=== PATIENT | male | born 1965 | race African-American/Black ===

== ENCOUNTER 2025-01-07 14:54 | Inpatient (IN) | payer SELFPAY ==
[~2025-01-07] VITALS: Ht 170.2 cm; Wt 120.2 kg
[2025-01-07] VITALS (23 sets, daily range): BP systolic 132–148; BP diastolic 100–117; PULSE 80–92; RESP 17–37; TEMP 36.8–36.8072; O2SAT 94–98
[~2025-01-07 14:54] MED LIST: ASPI-1406 PO; ATOR40TA70 PO; EMPA10TA PO; FOLI-43 PO; FURO80TA87 MT; GABA-1180 PO; GUAI600T44 PO; INSLIS SUBCUT; MAGN400T26 PO; MELA3TAB40 PO; THIA100T72 PO
[2025-01-07 15:45] LABS: BG BASE EXCESS -8.5 mmol/L (-2.0-3.0); BG CARBOXYHEMOGLOBIN 0.4 % (0.5-1.5); BG DEOXYHEMOGLOBIN 0.4 % (0.0-5.0); BG FRACTION INSPIRED OXYGEN 100; BG HCO3 ACT 14.6 mmol/L (21.0-28.0); BG METHEMOGLOBIN 0.3 % (0.5-1.5); BG OXYGEN SATURATION 99.6 % (94.0-98.0); BG OXYHEMOGLOBIN 98.9 % (94.0-98.0); BG PCO2 26.2 mmHg (35.0-48.0); BG PH 7.364 (7.350-7.450); BG PO2 208.1 mmHg (83.0-108.0); BG SAMPLE SITE RIGHT RADIAL; BG TOTAL HEMOGLOBIN 18.2 g/dL (13.5-17.5); BG TOTAL RESPIRATORY RATE 26 b/min; BG VENT MODE MASK - BIPAP; BG VENT RATE 18.0 set
[2025-01-07] MEDS: SODIUM CHLORIDE 0.9% 500 ML IV ONE (17:23)
[2025-01-07 17:47] LABS: BASOPHILS % 0.4 % (0.0-2.0); EOSINOPHILS % 0.5 % (0.0-5.0); HEMATOCRIT. 53.5 % (42.0-52.0); HEMOGLOBIN. 16.8 g/dL (14.0-18.0); LYMPHOCYTES % 20.1 % (20.0-50.0); MEAN PLATELET VOLUME 9.5 fl (7.4-10.4); MONOCYTES % 9.0 % (2.0-8.0); NEUTROPHILS % 70.0 % (40.0-76.0); PLATELET 142 x1000/uL (130-400); RED BLOOD CELL COUNT 5.93 mill/uL (4.7-6.1); RED CELL DISTRIBUTION WIDTH 16.7 % (11.6-14.6)
[2025-01-07] MEDS: DIPHENHYDRAMINE 50MG/ML VIAL IV ONE (17:52)
[2025-01-07] MEDS: METHYLPREDNISOLONE SOD SUCC 125MG/2ML (ACT-O-VIAL) IV NR (17:52)
[2025-01-07] MEDS ORDERED: METHYLPREDNISOLONE 40MG/ML INJ IV ONE (18:00)
[2025-01-07 18:01] LABS: CREATININE 1.7 mg/dL (0.6-1.3); UREA NITROGEN BLOOD 17 mg/dL (9-23)
[2025-01-07 18:02] LABS: ASPARTATE AMINOTRANSFERASE 27 IU/L (<34)
[2025-01-07 18:03] LABS: BILIRUBIN DIRECT 0.4 mg/dL (<=3.0); BILIRUBIN TOTAL 1.0 mg/dL (0.1-1.0); PROTEIN TOTAL 7.5 g/dL (6.0-8.3)
[2025-01-07 18:05] LABS: TROPONIN I HIGH SENSITIVITY 724 ng/L (3.0-53)
[2025-01-07] MEDS: MORPHINE SULFATE 4 MG/ML INJ (FOR IV/IM USE) IV ONE (18:37)
[2025-01-07] MEDS: IPRATROPIUM/ALBUTEROL 0.5-3(2.5)MG/3ML NEB HHN ONE (18:55)
[2025-01-07] MEDS ORDERED: HEPARIN 5000 UNITS/ML VIAL IV SCH (19:00)
[2025-01-07] MEDS ORDERED: HEPARIN 25,000 UNITS PREMIX 250 ML IV PRN (19:00)
[2025-01-07] MEDS ORDERED: HEPARIN 5000 UNITS/ML VIAL IV PRN ×2 (19:00)
[2025-01-07] MEDS ORDERED: TENECTEPLASE 50MG/VIAL (FOR MI OR PE) IV ONE (19:05)
[2025-01-07] MEDS: TENECTEPLASE 50MG/VIAL IV NR (19:11)
[2025-01-07] MEDS ORDERED: HEPARIN 1000 UNITS/ML 10ML ONE (19:19)
[2025-01-07] MEDS ORDERED: MIDAZOLAM HCL 2 MG/2 ML VIAL ONE (19:19)
[2025-01-07] MEDS ORDERED: IODIXANOL 320MG/ML 100 ML BOTTLE IV ONE (19:20)
[2025-01-07] MEDS ORDERED: EPINEPHRINE 0.1MG/ML (1:10,000) 10ML SYR ONE (19:20)
[2025-01-07] MEDS ORDERED: LIDOCAINE HCL 1% 20ML VIAL ONE (19:20)
[2025-01-07] MEDS ORDERED: ATROPINE SULFATE 1MG/10ML SYR ONE (19:21)
[2025-01-07] MEDS ORDERED: FENTANYL CITRATE/PF 50MCG/ML 2ML VIAL ONE (19:21)
[2025-01-07 19:34] LABS: TROPONIN I HIGH SENSITIVITY 781 ng/L (3.0-53)
[2025-01-07] MEDS ORDERED: IODIXANOL 320 MG/ML 150ML BOTTLE IV ONE (19:46)
[2025-01-07] MEDS ORDERED: ONDANSETRON HCL 4MG/2ML INJ IV PRN (22:15)
[2025-01-07] MEDS ORDERED: DOCUSATE SODIUM 100MG CAPSULE PO PRN (22:15)
[2025-01-07] MEDS: BLOOD SUGAR DIAGNOSTIC STRIP TEST SCH (23:45)
[2025-01-08] VITALS (73 sets, daily range): BP systolic 106–149; BP diastolic 67–115; PULSE 77–93; RESP 14–27; TEMP 35.6–36.9; O2SAT 83–99
[2025-01-08] MEDS: INSULIN LISPRO 100 UNITS/ML SUBCUT SCH ×2 (00:07→08:16)
[2025-01-08] MEDS: IPRATROPIUM/ALBUTEROL 0.5-3(2.5)MG/3ML NEB HHN SCH (00:14)
[2025-01-08 06:48] LABS: HEMATOCRIT. 51.4 % (42.0-52.0); HEMOGLOBIN. 16.3 g/dL (14.0-18.0); MEAN PLATELET VOLUME 9.4 fl (7.4-10.4); PLATELET 128 x1000/uL (130-400); RED BLOOD CELL COUNT 5.76 mill/uL (4.7-6.1); RED CELL DISTRIBUTION WIDTH 16.3 % (11.6-14.6)
[2025-01-08 06:53] LABS: INR 2.0
[2025-01-08 07:08] LABS: CREATININE 1.6 mg/dL (0.6-1.3); TRIGLYCERIDE 85.0 mg/dL (0-150); UREA NITROGEN BLOOD 19.0 mg/dL (9-23)
[2025-01-08 07:09] LABS: LDL CHOLESTEROL 58.0 mg/dL (5-100)
[2025-01-08 07:11] LABS: T4 FREE 1.21 ng/dL (0.89-1.76)
[2025-01-08 07:41] LABS: HEPATITIS C AB NON REACTIVE (Neg) (Negative)
[2025-01-08] MEDS: FUROSEMIDE 40MG/4ML VIAL IVP SCH (08:13)
[2025-01-08] MEDS: PANTOPRAZOLE SODIUM 40 MG/VIAL IV SCH (08:13)
[2025-01-08 09:13] LABS: BG BASE EXCESS -6.9 mmol/L (-2.0-3.0); BG CARBOXYHEMOGLOBIN 1.0 % (0.5-1.5); BG DEOXYHEMOGLOBIN 3.0 % (0.0-5.0); BG FLOW(L/min) 5.00 L/min; BG FRACTION INSPIRED OXYGEN 40; BG HCO3 ACT 15.1 mmol/L (21.0-28.0); BG METHEMOGLOBIN 0.1 % (0.5-1.5); BG OXYGEN SATURATION 97.0 % (94.0-98.0); BG OXYHEMOGLOBIN 95.9 % (94.0-98.0); BG PCO2 24.1 mmHg (35.0-48.0); BG PH 7.416 (7.350-7.450); BG PO2 90.8 mmHg (83.0-108.0); BG SAMPLE SITE RIGHT RADIAL; BG TOTAL HEMOGLOBIN 17.2 g/dL (13.5-17.5); BG VENT MODE NASAL CANNULA
[2025-01-08] MEDS: INSULIN GLARGINE 100 UNITS/ML SUBCUT SCH ×2 (10:12→21:54)
[2025-01-08 14:10] LABS: CLARITY URINE CLEAR (CLEAR); COLOR URINE YELLOW (YELLOW); GLUCOSE URINE 3+ (NEGATIVE); KETONES URINE NEGATIVE (NEGATIVE); LEUKOCYTE ESTERASE URINE NEGATIVE (NEGATIVE); NITRITE URINE NEGATIVE (NEGATIVE); OCCULT BLOOD URINE NEGATIVE (NEGATIVE); PH URINE 5.0 (4.5-8.0); PROTEIN URINE NEGATIVE (NEGATIVE); SPECIFIC GRAVITY URINE 1.021 (1.005-1.030); UROBILINOGEN URINE 0.2 E.U./dL (0.2-1.0)
[2025-01-08] MEDS: FOLIC ACID 1MG TABLET PO SCH (14:11)
[2025-01-08] MEDS: THIAMINE HCL 100MG TABLET PO SCH (14:11)
[2025-01-08] MEDS: ENOXAPARIN 120MG/0.8ML SYR SUBCUT SCH (14:11)
[2025-01-08] MEDS: EMPAGLIFLOZIN 10MG TABLET PO SCH (14:11)
[2025-01-08 14:20] LABS: *AMPHETAMINES SCREEN URINE PRESUMPTIVE POSITIVE (NEGATIVE); *BARBITURATES SCREEN URINE NEGATIVE (NEGATIVE); *BENZODIAZEPINES SCREEN URINE NEGATIVE (NEGATIVE); *COCAINE SCREEN URINE NEGATIVE (NEGATIVE); METHADONE URINE SCREEN NEGATIVE (NEGATIVE); OPIATES URINE SCREEN NEGATIVE (NEGATIVE)
[2025-01-08 14:21] LABS: CANNABINOID URINE SCREEN NEGATIVE (NEGATIVE); ECSTASY MDMA SCREEN URINE NEGATIVE (NEGATIVE); PHENCYCLIDINE URINE SCREEN NEGATIVE (NEGATIVE)
[2025-01-08 14:41] LABS: RBC URINE NONE SEEN /hpf (0-2); WBC URINE 0-2 /hpf (0-2)
[2025-01-08 14:42] LABS: BACTERIA URINE NONE SEEN; SQUAMOUS EPITHELIAL CELL URINE NONE SEEN /lpf (RARE/1+); YEAST URINE NONE SEEN
[2025-01-08 21:04] LABS: LYMPHOCYTES % MANUAL 4.0 % (20.0-50.0); MONOCYTES % MANUAL 3.0 % (2.0-8.0); NEUTROPHILS % MANUAL 93.0 % (45.0-75.0); PLATELET ESTIMATE DECREASED
[2025-01-08] MEDS: TRIAMCINOLONE ACETONIDE 0.5% CREAM 15GM TOP SCH (21:51)
[2025-01-08] MEDS ORDERED: INSULIN GLARGINE 100 UNITS/ML SUBCUT SCH (22:00)
[2025-01-09] VITALS (68 sets, daily range): BP systolic 105–134; BP diastolic 72–105; PULSE 76–115; RESP 12–31; TEMP 36.7–37; O2SAT 94–100
[2025-01-09] MEDS: GUAIFENESIN 200MG/10ML SUGAR FREE UDC PO PRN (02:35)
[2025-01-09 06:20] LABS: HEMATOCRIT. 47.1 % (42.0-52.0); HEMOGLOBIN. 15.0 g/dL (14.0-18.0); MEAN PLATELET VOLUME 9.2 fl (7.4-10.4); PLATELET 135 x1000/uL (130-400); RED BLOOD CELL COUNT 5.42 mill/uL (4.7-6.1); RED CELL DISTRIBUTION WIDTH 16.1 % (11.6-14.6)
[2025-01-09 06:39] LABS: CREATININE 1.5 mg/dL (0.6-1.3)
[2025-01-09 06:40] LABS: UREA NITROGEN BLOOD 24.0 mg/dL (9-23)
[2025-01-09] MEDS: BENZONATATE 100MG CAPSULE PO SCH (09:42)
[2025-01-09 15:20] LABS: LYMPHOCYTES % MANUAL 5.0 % (20.0-50.0); MONOCYTES % MANUAL 5.0 % (2.0-8.0); NEUTROPHILS % MANUAL 90.0 % (45.0-75.0); PLATELET ESTIMATE NORMAL
[2025-01-10] VITALS (13 sets, daily range): BP systolic 101–126; BP diastolic 77–100; PULSE 81–101; RESP 14–24; TEMP 36.5–36.9; O2SAT 95–97
[2025-01-10] MEDS: ACETAMINOPHEN 325MG TABLET PO PRN (09:02)
[2025-01-10 11:13] LABS: BASOPHILS % 0.2 % (0.0-2.0); EOSINOPHILS % 0.8 % (0.0-5.0); HEMATOCRIT. 49.2 % (42.0-52.0); HEMOGLOBIN. 15.6 g/dL (14.0-18.0); LYMPHOCYTES % 12.8 % (20.0-50.0); MEAN PLATELET VOLUME 9.9 fl (7.4-10.4); MONOCYTES % 7.8 % (2.0-8.0); NEUTROPHILS % 78.4 % (40.0-76.0); PLATELET 152 x1000/uL (130-400); RED BLOOD CELL COUNT 5.54 mill/uL (4.7-6.1); RED CELL DISTRIBUTION WIDTH 16.2 % (11.6-14.6)
[2025-01-10 11:38] LABS: CREATININE 1.4 mg/dL (0.6-1.3); UREA NITROGEN BLOOD 19 mg/dL (9-23)
[2025-01-10 11:40] LABS: PHOSPHORUS 3.6 mg/dL (2.5-4.9)
[2025-01-10 14:25] LABS: TROPONIN I HIGH SENSITIVITY 367 ng/L (3.0-53)
[2025-01-10] MEDS: ASPIRIN 81MG EC TABLET PO SCH (17:06)
[2025-01-10] MEDS: NITROGLYCERIN 0.4MG TABLET SL SL PRN (17:07)
[2025-01-10] MEDS: ATORVASTATIN CALCIUM 40MG TABLET PO SCH (21:16)
[2025-01-10] MEDS: DIPHENHYDRAMINE 50MG/ML VIAL IV SCH (21:59)
[2025-01-10] MEDS: PREDNISONE 20MG TABLET PO NR (23:16)
[2025-01-11] VITALS (9 sets, daily range): BP systolic 110–140; BP diastolic 94–107; PULSE 80–97; RESP 14–28; TEMP 36.4–36.9; O2SAT 93–99
[2025-01-11] MEDS: PREDNISONE 20MG TABLET PO NR (04:54)
[2025-01-11 06:39] LABS: HEMATOCRIT. 46.6 % (42.0-52.0); HEMOGLOBIN. 15.1 g/dL (14.0-18.0); MEAN PLATELET VOLUME 9.2 fl (7.4-10.4); PLATELET 146 x1000/uL (130-400); RED BLOOD CELL COUNT 5.36 mill/uL (4.7-6.1); RED CELL DISTRIBUTION WIDTH 16.6 % (11.6-14.6)
[2025-01-11 07:06] LABS: CREATININE 1.2 mg/dL (0.6-1.3); UREA NITROGEN BLOOD 21 mg/dL (9-23)
[2025-01-11] MEDS: GABAPENTIN 300MG CAPSULE PO SCH (09:49)
[2025-01-11] MEDS ORDERED: PREDNISONE 20MG TABLET PO NR (11:00)
[2025-01-11] MEDS: PREDNISONE 10MG TABLET PO NR (12:20)
[2025-01-11] MEDS: DIPHENHYDRAMINE 50MG/ML VIAL IV NR (12:20)
[2025-01-11 21:45] LABS: LYMPHOCYTES % MANUAL 8.0 % (20.0-50.0); MONOCYTES % MANUAL 6.0 % (2.0-8.0); NEUTROPHILS % MANUAL 86.0 % (45.0-75.0); PLATELET ESTIMATE NORMAL
[2025-01-12] VITALS (7 sets, daily range): BP systolic 118–132; BP diastolic 87–97; PULSE 79–98; RESP 16–26; TEMP 36.3–36.8; O2SAT 95–99
[2025-01-12 07:09] LABS: CREATININE 1.2 mg/dL (0.6-1.3); UREA NITROGEN BLOOD 22 mg/dL (9-23)
[2025-01-12 07:10] LABS: HEMATOCRIT. 47.2 % (42.0-52.0); HEMOGLOBIN. 15.1 g/dL (14.0-18.0); MEAN PLATELET VOLUME 9.9 fl (7.4-10.4); PLATELET 169 x1000/uL (130-400); RED BLOOD CELL COUNT 5.42 mill/uL (4.7-6.1); RED CELL DISTRIBUTION WIDTH 15.9 % (11.6-14.6)
[2025-01-12 15:13] LABS: BAND% 3.0 % (1.0-6.0); LYMPHOCYTES % MANUAL 6.0 % (20.0-50.0); MONOCYTES % MANUAL 4.0 % (2.0-8.0); NEUTROPHILS % MANUAL 87.0 % (45.0-75.0); PLATELET ESTIMATE NORMAL
[2025-01-13] VITALS (8 sets, daily range): BP systolic 118–131; BP diastolic 89–98; PULSE 82–93; RESP 14–27; TEMP 36.7–36.9; O2SAT 96–100
[2025-01-13 06:51] LABS: BASOPHILS % 0.2 % (0.0-2.0); EOSINOPHILS % 1.6 % (0.0-5.0); HEMATOCRIT. 46.7 % (42.0-52.0); HEMOGLOBIN. 15.0 g/dL (14.0-18.0); LYMPHOCYTES % 18.9 % (20.0-50.0); MEAN PLATELET VOLUME 9.6 fl (7.4-10.4); MONOCYTES % 9.7 % (2.0-8.0); NEUTROPHILS % 69.6 % (40.0-76.0); PLATELET 169 x1000/uL (130-400); RED BLOOD CELL COUNT 5.40 mill/uL (4.7-6.1); RED CELL DISTRIBUTION WIDTH 16.4 % (11.6-14.6)
[2025-01-13 06:55] LABS: CREATININE 1.3 mg/dL (0.6-1.3); UREA NITROGEN BLOOD 25 mg/dL (9-23)
[2025-01-13] MEDS: IPRATROPIUM/ALBUTEROL 0.5-3(2.5)MG/3ML NEB HHN PRN (08:41)
[2025-01-13] MEDS: IOHEXOL-300 100 ML BOTTLE ONE (09:34)
[2025-01-13] MEDS: IOHEXOL-350 100 ML BOTTLE ONE (09:34)
[2025-01-13] MEDS: FAMOTIDINE 20MG/2ML VIAL IV SCH (09:36)
[2025-01-13] MEDS: CLONIDINE 0.1MG TABLET PO PRN (11:46)
[2025-01-14] VITALS (28 sets, daily range): BP systolic 93–135; BP diastolic 66–106; PULSE 78–126; RESP 0–27; TEMP 36.6–37.2; O2SAT 82–99
[2025-01-14] MEDS: HYDRALAZINE 20MG/ML VIAL IV PRN (11:36)
[2025-01-14 12:37] LABS: PLATELET 163 x1000/uL (130-400); RED BLOOD CELL COUNT 5.47 mill/uL (4.7-6.1); RED CELL DISTRIBUTION WIDTH 15.8 % (11.6-14.6)
[2025-01-14] MEDS ORDERED: MIDAZOLAM HCL 2 MG/2 ML VIAL ONE ×2 (12:40→13:58)
[2025-01-14] MEDS: MORPHINE SULFATE 2 MG/ML INJ (NOT FOR IM USE) IV ONE (12:40)
[2025-01-14] MEDS ORDERED: FENTANYL CITRATE/PF 50MCG/ML 2ML VIAL ONE ×2 (12:41→13:57)
[2025-01-14] MEDS: MORPHINE SULFATE 4 MG/ML INJ (FOR IV/IM USE) IV NR (12:43)
[2025-01-14 12:59] LABS: CREATININE 1.1 mg/dL (0.6-1.3); UREA NITROGEN BLOOD 25 mg/dL (9-23)
[2025-01-14] MEDS ORDERED: VERAPAMIL HCL 2.5 MG/1 ML 2ML VIAL IV ONE (13:36)
[2025-01-14] MEDS ORDERED: IODIXANOL 320MG/ML 100 ML BOTTLE IV ONE (13:36)
[2025-01-14] MEDS ORDERED: HEPARIN 1000 UNITS/ML 10ML ONE (13:36)
[2025-01-14] MEDS ORDERED: LIDOCAINE HCL 1% 20ML VIAL ONE (13:36)
[2025-01-14] MEDS ORDERED: DIPHENHYDRAMINE 50MG/ML VIAL ONE (13:57)
[2025-01-14] MEDS: AMIODARONE HCL 900 MG in DEXT 5% WATER 482 ML IV SCH (13:58)
[2025-01-14] MEDS ORDERED: METHYLPREDNISOLONE SOD SUCC 125MG/2ML (ACT-O-VIAL) ONE (13:58)
[2025-01-14] MEDS ORDERED: FAMOTIDINE 20MG/2ML VIAL IV ONE (14:07)
[2025-01-14] MEDS ORDERED: FUROSEMIDE 20MG/2ML VIAL ONE ×2 (14:59)
[2025-01-14] MEDS: MAGNESIUM 2 G PREMIX 50 ML IV SCH (17:16)
[2025-01-15] VITALS (36 sets, daily range): BP systolic 103–139; BP diastolic 71–106; PULSE 69–101; RESP 0–27; TEMP 36.6–37.1; O2SAT 81–97
[2025-01-15] MEDS: IPRATROPIUM/ALBUTEROL 0.5-3(2.5)MG/3ML NEB HHN SCH (06:21)
[2025-01-15 06:40] LABS: BASOPHILS % 0.1 % (0.0-2.0); EOSINOPHILS % 0.1 % (0.0-5.0); HEMATOCRIT. 48.9 % (42.0-52.0); HEMOGLOBIN. 15.7 g/dL (14.0-18.0); LYMPHOCYTES % 7.1 % (20.0-50.0); MEAN PLATELET VOLUME 9.8 fl (7.4-10.4); MONOCYTES % 3.6 % (2.0-8.0); NEUTROPHILS % 89.1 % (40.0-76.0); PLATELET 197 x1000/uL (130-400); RED BLOOD CELL COUNT 5.63 mill/uL (4.7-6.1); RED CELL DISTRIBUTION WIDTH 16.1 % (11.6-14.6)
[2025-01-15 06:47] LABS: UREA NITROGEN BLOOD 26 mg/dL (9-23)
[2025-01-15 06:59] LABS: CREATININE 1.5 mg/dL (0.6-1.3)
[2025-01-15] MEDS: HYDROMORPHONE HCL/PF 1MG/ML INJ IV NR (10:35)
[2025-01-15] MEDS ORDERED: IPRATROPIUM/ALBUTEROL 0.5-3(2.5)MG/3ML NEB HHN PRN (12:15)
[2025-01-15] MEDS ORDERED: LIDOCAINE HCL 1% 20ML VIAL ONE (14:13)
[2025-01-15] MEDS ORDERED: HEPARIN 1000 UNITS/ML 10ML ONE (14:13)
[2025-01-15] MEDS ORDERED: IODIXANOL 320 MG/ML 150ML BOTTLE IV ONE (14:13)
[2025-01-15] MEDS ORDERED: METHYLPREDNISOLONE SOD SUCC 125MG/2ML (ACT-O-VIAL) ONE (14:30)
[2025-01-15] MEDS ORDERED: FAMOTIDINE 20MG/2ML VIAL IV ONE (14:30)
[2025-01-15] MEDS ORDERED: DIPHENHYDRAMINE 50MG/ML VIAL ONE (14:30)
[2025-01-15] MEDS ORDERED: FENTANYL CITRATE/PF 50MCG/ML 2ML VIAL ONE (14:40)
[2025-01-15] MEDS ORDERED: MIDAZOLAM HCL 2 MG/2 ML VIAL ONE (14:40)
[2025-01-15] MEDS ORDERED: IODIXANOL 320MG/ML 100 ML BOTTLE IV ONE (15:23)
[2025-01-15] MEDS ORDERED: ATROPINE SULFATE 1MG/10ML SYR IV PRN (15:45)
[2025-01-15] MEDS: BUMETANIDE 1MG/4ML VIAL IV NR (17:18)
[2025-01-15] MEDS: ACETAMINOPHEN 325MG TABLET PO PRN (19:49)
[2025-01-16] VITALS (62 sets, daily range): BP systolic 61–145; BP diastolic 39–110; PULSE 75–93; RESP 13–33; TEMP 36.7; O2SAT 90–99
[2025-01-16 07:01] LABS: HEMATOCRIT. 46.3 % (42.0-52.0); HEMOGLOBIN. 14.8 g/dL (14.0-18.0); MEAN PLATELET VOLUME 9.8 fl (7.4-10.4); PLATELET 192 x1000/uL (130-400); RED BLOOD CELL COUNT 5.24 mill/uL (4.7-6.1); RED CELL DISTRIBUTION WIDTH 17.0 % (11.6-14.6)
[2025-01-16 07:28] LABS: CREATININE 1.6 mg/dL (0.6-1.3); UREA NITROGEN BLOOD 30.0 mg/dL (9-23)
[2025-01-16] MEDS: BUMETANIDE 1MG/4ML VIAL IV SCH (08:09)
[2025-01-16] MEDS: INSULIN LISPRO 100 UNITS/ML SUBCUT SCH (12:56)
[2025-01-16 15:53] LABS: LYMPHOCYTES % MANUAL 3.0 % (20.0-50.0); MONOCYTES % MANUAL 6.0 % (2.0-8.0); NEUTROPHILS % MANUAL 91.0 % (45.0-75.0); PLATELET ESTIMATE NORMAL
[2025-01-17] VITALS (81 sets, daily range): BP systolic 108–148; BP diastolic 79–122; PULSE 70–92; RESP 9–27; TEMP 36.7; O2SAT 84–100
[2025-01-17 06:27] LABS: BASOPHILS % 0.2 % (0.0-2.0); EOSINOPHILS % 0.1 % (0.0-5.0); HEMATOCRIT. 44.3 % (42.0-52.0); HEMOGLOBIN. 14.2 g/dL (14.0-18.0); LYMPHOCYTES % 11.7 % (20.0-50.0); MEAN PLATELET VOLUME 9.4 fl (7.4-10.4); MONOCYTES % 12.6 % (2.0-8.0); NEUTROPHILS % 75.4 % (40.0-76.0); PLATELET 197 x1000/uL (130-400); RED BLOOD CELL COUNT 5.09 mill/uL (4.7-6.1); RED CELL DISTRIBUTION WIDTH 16.0 % (11.6-14.6)
[2025-01-17 06:43] LABS: CREATININE 1.6 mg/dL (0.6-1.3); UREA NITROGEN BLOOD 33.0 mg/dL (9-23)
[2025-01-17] MEDS: AMIODARONE 200MG TABLET PO SCH (08:08)
[2025-01-17] MEDS: CARVEDILOL 3.125 MG TABLET PO SCH (08:09)
[2025-01-17] MEDS: ENOXAPARIN 100MG/ML SYR SUBCUT SCH (15:20)
[2025-01-17] MEDS: OXYCODONE HCL/ACETAMINOPHEN 5/325MG TABLET PO PRN (16:40)
[2025-01-18] VITALS (97 sets, daily range): BP systolic 69–149; BP diastolic 49–112; PULSE 65–87; RESP 0–24; TEMP 36.6–36.7; O2SAT 82–99
[2025-01-18 07:08] LABS: BASOPHILS % 0.2 % (0.0-2.0); EOSINOPHILS % 1.0 % (0.0-5.0); HEMATOCRIT. 45.7 % (42.0-52.0); HEMOGLOBIN. 14.5 g/dL (14.0-18.0); LYMPHOCYTES % 14.2 % (20.0-50.0); MEAN PLATELET VOLUME 9.5 fl (7.4-10.4); MONOCYTES % 11.8 % (2.0-8.0); NEUTROPHILS % 72.8 % (40.0-76.0); PLATELET 192 x1000/uL (130-400); RED BLOOD CELL COUNT 5.28 mill/uL (4.7-6.1); RED CELL DISTRIBUTION WIDTH 15.9 % (11.6-14.6)
[2025-01-18 07:22] LABS: CREATININE 1.2 mg/dL (0.6-1.3); UREA NITROGEN BLOOD 25 mg/dL (9-23)
[2025-01-18] MEDS: MAGNESIUM/ALUMINUM HYDROXIDE/SIMETHICONE 30ML UDC PO PRN (08:28)
[2025-01-18] MEDS: BUMETANIDE 1MG TABLET PO SCH (08:35)
[2025-01-18] MEDS: PANTOPRAZOLE SODIUM 40 MG/VIAL IV SCH (17:48)
[2025-01-19] VITALS (40 sets, daily range): BP systolic 90–125; BP diastolic 58–99; PULSE 69–92; RESP 0–24; TEMP 36.6–36.9; O2SAT 89–100
[2025-01-19 08:03] LABS: BASOPHILS % 0.3 % (0.0-2.0); EOSINOPHILS % 1.7 % (0.0-5.0); HEMATOCRIT. 45.6 % (42.0-52.0); HEMOGLOBIN. 14.5 g/dL (14.0-18.0); LYMPHOCYTES % 16.3 % (20.0-50.0); MEAN PLATELET VOLUME 10.0 fl (7.4-10.4); MONOCYTES % 9.9 % (2.0-8.0); NEUTROPHILS % 71.8 % (40.0-76.0); PLATELET 184 x1000/uL (130-400); RED BLOOD CELL COUNT 5.27 mill/uL (4.7-6.1); RED CELL DISTRIBUTION WIDTH 16.1 % (11.6-14.6)
[2025-01-19 08:22] LABS: CREATININE 1.5 mg/dL (0.6-1.3)
[2025-01-19 08:23] LABS: UREA NITROGEN BLOOD 23.0 mg/dL (9-23)
[2025-01-19] MEDS ORDERED: NALOXONE HCL 0.4MG/ML VIAL IV PRN (12:30)
[2025-01-20] VITALS (8 sets, daily range): BP systolic 111–142; BP diastolic 84–111; PULSE 72–84; RESP 12–22; TEMP 36.6–37.4; O2SAT 91–99
[2025-01-20 08:09] LABS: BASOPHILS % 0.2 % (0.0-2.0); EOSINOPHILS % 0.8 % (0.0-5.0); HEMATOCRIT. 42.0 % (42.0-52.0); HEMOGLOBIN. 13.4 g/dL (14.0-18.0); LYMPHOCYTES % 11.5 % (20.0-50.0); MEAN PLATELET VOLUME 10.5 fl (7.4-10.4); MONOCYTES % 8.5 % (2.0-8.0); NEUTROPHILS % 79.0 % (40.0-76.0); PLATELET 166 x1000/uL (130-400); RED BLOOD CELL COUNT 4.81 mill/uL (4.7-6.1); RED CELL DISTRIBUTION WIDTH 16.2 % (11.6-14.6)
[2025-01-20] MEDS: POLYETHYLENE GLYCOL 3350 (17GM) 1 DOSE PACK PO SCH (09:00)
[2025-01-20 13:09] LABS: CREATININE 1.3 mg/dL (0.6-1.3); UREA NITROGEN BLOOD 20 mg/dL (9-23)
[2025-01-21 00:19] VITALS: BP 126/95; PULSE 76; RESP 18; TEMP 36.7; O2SAT 97
[2025-01-21 04:00] VITALS: BP 114/90; PULSE 77; RESP 24; TEMP 36.7; O2SAT 94
[2025-01-21 08:00] VITALS: BP 119/99; PULSE 83; RESP 24; TEMP 36.7; O2SAT 95
[2025-01-21 12:00] VITALS: BP 123/97; PULSE 79; RESP 23; TEMP 36.6; O2SAT 98
[2025-01-21 16:00] VITALS: PULSE 77; RESP 18; TEMP 36.2; O2SAT 97
[2025-01-21 20:00] VITALS: BP 143/76; PULSE 74; RESP 19; TEMP 37; O2SAT 98
[2025-01-22] VITALS (7 sets, daily range): BP systolic 107–132; BP diastolic 72–100; PULSE 69–78; RESP 18–22; TEMP 36.1–36.8; O2SAT 98–99
[2025-01-22] MEDS: LOSARTAN 25 MG TABLET PO SCH (13:00)
[2025-01-23 00:01] VITALS: BP 108/98; PULSE 78; TEMP 36.5; O2SAT 96
[2025-01-23] MEDS: OXYCODONE HCL/ACETAMINOPHEN 5/325MG TABLET PO NR (00:11)
[2025-01-23 04:01] VITALS: BP 114/95; PULSE 73; RESP 12; TEMP 36.8; O2SAT 97
[2025-01-23 08:00] VITALS: BP 106/74; PULSE 79; RESP 20; TEMP 36.7; O2SAT 93
[2025-01-23] MEDS: ACETAMINOPHEN 325MG TABLET PO PRN (10:20)
[2025-01-23 11:10] LABS: BG BASE EXCESS -5.0 mmol/L (-2.0-3.0); BG CARBOXYHEMOGLOBIN 1.7 % (0.5-1.5); BG DEOXYHEMOGLOBIN 6.1 % (0.0-5.0); BG FRACTION INSPIRED OXYGEN 21; BG HCO3 ACT 18.5 mmol/L (21.0-28.0); BG METHEMOGLOBIN 0.1 % (0.5-1.5); BG OXYGEN SATURATION 93.8 % (94.0-98.0); BG OXYHEMOGLOBIN 92.1 % (94.0-98.0); BG PCO2 30.4 mmHg (35.0-48.0); BG PH 7.402 (7.350-7.450); BG PO2 68.8 mmHg (83.0-108.0); BG SAMPLE SITE LEFT RADIAL; BG TOTAL HEMOGLOBIN 14.5 g/dL (13.5-17.5); BG VENT MODE ROOM AIR
[2025-01-23 12:00] VITALS: BP 90/73; PULSE 72; RESP 12; TEMP 36.7; O2SAT 92
[2025-01-23] MEDS: OXYCODONE HCL/ACETAMINOPHEN 5/325MG TABLET PO PRN (15:54)
[2025-01-23 16:00] VITALS: BP 111/89; PULSE 73; RESP 14; TEMP 36.6; O2SAT 92
[2025-01-23 20:00] VITALS: BP 117/91; PULSE 76; RESP 20; TEMP 36.6; O2SAT 96
[2025-01-24] VITALS: BP 118/70; PULSE 83; RESP 18; TEMP 36.8; O2SAT 95
[2025-01-24 04:00] VITALS: BP 104/76; PULSE 78; RESP 15; TEMP 36.8; O2SAT 96
[2025-01-24 08:00] VITALS: BP 116/83; PULSE 72; RESP 15; TEMP 36.5; O2SAT 96
[2025-01-24 12:00] VITALS: BP 101/80; PULSE 70; RESP 15; TEMP 36.7; O2SAT 96
[2025-01-24 16:00] VITALS: BP 124/87; PULSE 81; RESP 14; TEMP 36.9; O2SAT 96
[2025-01-24 20:00] VITALS: BP 123/90; PULSE 75; RESP 14; TEMP 36.8; O2SAT 98
[2025-01-25] VITALS: BP 103/77; PULSE 85; RESP 20; TEMP 36.8; O2SAT 96
[2025-01-25 04:00] VITALS: BP 115/96; PULSE 72; RESP 12; TEMP 36.7; O2SAT 94
[2025-01-25 08:00] VITALS: BP 111/88; PULSE 72; RESP 21; TEMP 36.4; O2SAT 99
[2025-01-25 12:00] VITALS: BP 114/83; PULSE 92; RESP 24; TEMP 36.7; O2SAT 95
[2025-01-25] MEDS: DEXTROSE 50% WATER 50ML SYRINGE IV PRN (13:24)
[2025-01-25 16:00] VITALS: BP 113/80; PULSE 78; RESP 20; TEMP 36.3; O2SAT 93
[2025-01-25 20:02] VITALS: BP 124/97; PULSE 73; RESP 21; TEMP 37.2; O2SAT 96
[2025-01-26 00:02] VITALS: BP 102/81; PULSE 86; RESP 24; TEMP 36.9; O2SAT 96
[2025-01-26 04:02] VITALS: BP 122/111; PULSE 79; RESP 24; TEMP 36.8; O2SAT 97
[2025-01-26 08:00] VITALS: BP 129/91; PULSE 96; RESP 18; TEMP 36.6; O2SAT 98
[2025-01-26 12:00] VITALS: BP 124/109; PULSE 90; RESP 22; TEMP 36.8; O2SAT 98
[2025-01-26 16:00] VITALS: BP 126/86; PULSE 90; RESP 22; TEMP 37.3; O2SAT 95
[2025-01-26 20:00] VITALS: BP 120/88; PULSE 83; RESP 19; TEMP 37.1; O2SAT 95
[2025-01-27] VITALS: BP 134/74; PULSE 86; RESP 18; TEMP 36.3; O2SAT 97
[2025-01-27 04:00] VITALS: BP 129/85; PULSE 98; RESP 17; TEMP 36.4; O2SAT 98
[2025-01-27 08:54] VITALS: BP 116/81; PULSE 71; RESP 18; TEMP 36.3; O2SAT 94
[2025-01-27 10:19] LABS: BG BASE EXCESS -3.7 mmol/L (-2.0-3.0); BG CARBOXYHEMOGLOBIN 1.3 % (0.5-1.5); BG DEOXYHEMOGLOBIN 4.0 % (0.0-5.0); BG FLOW(L/min) 2.50 L/min; BG FRACTION INSPIRED OXYGEN 30; BG HCO3 ACT 18.6 mmol/L (21.0-28.0); BG METHEMOGLOBIN 0.1 % (0.5-1.5); BG OXYGEN SATURATION 95.9 % (94.0-98.0); BG OXYHEMOGLOBIN 94.6 % (94.0-98.0); BG PCO2 26.9 mmHg (35.0-48.0); BG PH 7.458 (7.350-7.450); BG PO2 80.0 mmHg (83.0-108.0); BG SAMPLE SITE LEFT RADIAL; BG TOTAL HEMOGLOBIN 13.7 g/dL (13.5-17.5); BG VENT MODE NASAL CANNULA
[2025-01-27 12:00] VITALS: BP 110/95; PULSE 72; RESP 16; TEMP 36.8; O2SAT 94
[2025-01-27 12:30] LABS: BASOPHILS % 0.4 % (0.0-2.0); EOSINOPHILS % 1.6 % (0.0-5.0); HEMATOCRIT. 40.3 % (42.0-52.0); HEMOGLOBIN. 12.9 g/dL (14.0-18.0); LYMPHOCYTES % 17.9 % (20.0-50.0); MEAN PLATELET VOLUME 10.2 fl (7.4-10.4); MONOCYTES % 8.4 % (2.0-8.0); NEUTROPHILS % 71.7 % (40.0-76.0); PLATELET 142 x1000/uL (130-400); RED BLOOD CELL COUNT 4.67 mill/uL (4.7-6.1); RED CELL DISTRIBUTION WIDTH 17.0 % (11.6-14.6)
[2025-01-27 12:40] LABS: CREATININE 1.5 mg/dL (0.6-1.3); UREA NITROGEN BLOOD 26 mg/dL (9-23)
[2025-01-27 12:43] LABS: PHOSPHORUS 3.4 mg/dL (2.5-4.9)
[2025-01-27 16:00] VITALS: BP 110/86; PULSE 72; RESP 15; TEMP 36.8; O2SAT 95
[2025-01-27] MEDS: GABAPENTIN 100MG CAPSULE PO SCH (17:42)
[2025-01-27] MEDS: OXYCODONE HCL/ACETAMINOPHEN 5/325MG TABLET PO PRN (19:13)
[2025-01-27] MEDS ORDERED: OXYCODONE HCL/ACETAMINOPHEN 5/325MG TABLET PO PRN (21:00)
[2025-01-27] MEDS: GABAPENTIN 300MG CAPSULE PO SCH (21:14)
[2025-01-28] VITALS (7 sets, daily range): BP systolic 71–123; BP diastolic 58–117; PULSE 65–85; RESP 16–23; TEMP 36.6–37.1; O2SAT 94–99
[2025-01-28 07:25] LABS: BASOPHILS % 0.2 % (0.0-2.0); EOSINOPHILS % 2.3 % (0.0-5.0); HEMATOCRIT. 42.2 % (42.0-52.0); HEMOGLOBIN. 13.4 g/dL (14.0-18.0); LYMPHOCYTES % 20.9 % (20.0-50.0); MEAN PLATELET VOLUME 10.3 fl (7.4-10.4); MONOCYTES % 11.7 % (2.0-8.0); NEUTROPHILS % 64.9 % (40.0-76.0); PLATELET 150 x1000/uL (130-400); RED BLOOD CELL COUNT 4.83 mill/uL (4.7-6.1); RED CELL DISTRIBUTION WIDTH 17.4 % (11.6-14.6)
[2025-01-28 07:39] LABS: CREATININE 1.7 mg/dL (0.6-1.3); UREA NITROGEN BLOOD 27 mg/dL (9-23)
[2025-01-28 07:41] LABS: PHOSPHORUS 3.5 mg/dL (2.5-4.9)
[2025-01-28] MEDS: BUMETANIDE 1MG/4ML VIAL IV NR (08:04)
[2025-01-29] VITALS: PULSE 82; RESP 29; O2SAT 98
[2025-01-29 01:10] VITALS: BP 119/94; PULSE 75; RESP 14; TEMP 36.3; O2SAT 95
[2025-01-29 04:28] VITALS: BP 128/97; PULSE 73; RESP 20; TEMP 36.3; O2SAT 95
[2025-01-29] MEDS: OXYCODONE HCL/ACETAMINOPHEN 5/325MG TABLET PO PRN (05:37)
[2025-01-29 08:00] VITALS: BP 103/88; PULSE 74; RESP 18; TEMP 36.9; O2SAT 96
[2025-01-29] MEDS: BUMETANIDE 1MG TABLET PO SCH (08:46)
[2025-01-29 12:00] VITALS: BP_SYST 124; BP_SYST 145; BP_DIAS 72; BP_DIAS 76; PULSE 71; PULSE 78; RESP 13; RESP 15; TEMP 36.7; O2SAT 92; O2SAT 99
[2025-01-29] MEDS ORDERED: AMI2 PO (14:57)
[2025-01-29] MEDS ORDERED: COR3 PO (14:57)
[2025-01-29] MEDS ORDERED: BUME1TAB8 PO (14:57)
[2025-01-29] MEDS ORDERED: APIX5TAB PO (14:57)
[2025-01-29] MEDS ORDERED: ATOR40TA70 PO (14:57)
[2025-01-29] MEDS ORDERED: THIA100T72 PO (14:57)
[2025-01-29] MEDS ORDERED: ASPI-1406 PO (14:57)
[2025-01-29] MEDS ORDERED: FAMOTIDINE 20MG/2ML VIAL IV SCH (21:00)
== END 2025-01-29 15:45 | disposition left against medical advice (07) | DRG 134 ==
LOC: ER 14:54 → EDBEDREQSVC 18:34 → CVICU 18:49 → EDBEDREQTM 19:00 → EDBEDREQ 19:00 → 3WST 01-10 02:15 → CVICU 01-14 12:59 → 3WST 01-19 12:16
PROVIDERS: ADMIT Internal Medicine; ATTEND Internal Medicine
PROC: 5A09357 Assistance with Respiratory Ventilation, Less than 24 Consecutive Hours, Continuous Positive Airway Pressure (ICD-10-PCS; principal; 2025-01-07)
PROC: 3E03317 Introduction of Other Thrombolytic into Peripheral Vein, Percutaneous Approach (ICD-10-PCS; 2025-01-07)
PROC: 4A023N7 Measurement of Cardiac Sampling and Pressure, Left Heart, Percutaneous Approach (ICD-10-PCS; 2025-01-14)
PROC: B211YZZ Fluoroscopy of Multiple Coronary Arteries using Other Contrast (ICD-10-PCS; 2025-01-14)
PROC: 5A2204Z Restoration of Cardiac Rhythm, Single (ICD-10-PCS; 2025-01-14)
PROC: 02CR3ZZ Extirpation of Matter from Left Pulmonary Artery, Percutaneous Approach (ICD-10-PCS; 2025-01-15)
PROC: 02CQ3ZZ Extirpation of Matter from Right Pulmonary Artery, Percutaneous Approach (ICD-10-PCS; 2025-01-15)
PROC: 4A023N6 Measurement of Cardiac Sampling and Pressure, Right Heart, Percutaneous Approach (ICD-10-PCS; 2025-01-15)
PROC: B31TYZZ Fluoroscopy of Left Pulmonary Artery using Other Contrast (ICD-10-PCS; 2025-01-15)
PROC: B31SYZZ Fluoroscopy of Right Pulmonary Artery using Other Contrast (ICD-10-PCS; 2025-01-15)
PROC: B519YZZ Fluoroscopy of Inferior Vena Cava using Other Contrast (ICD-10-PCS; 2025-01-15)
PROC: B51BYZZ Fluoroscopy of Right Lower Extremity Veins using Other Contrast (ICD-10-PCS; 2025-01-15)
DX: I26.99 Other pulmonary embolism without acute cor pulmonale (principal); R57.0 Cardiogenic shock; J96.01 Acute respiratory failure with hypoxia; I50.23 Acute on chronic systolic (congestive) heart failure; I27.21 Secondary pulmonary arterial hypertension; E87.4 Mixed disorder of acid-base balance; N17.9 Acute kidney failure, unspecified; I47.20 Ventricular tachycardia, unspecified; I82.431 Acute embolism and thrombosis of right popliteal vein; Z79.01 Long term (current) use of anticoagulants; F19.10 Other psychoactive substance abuse, uncomplicated; E11.65 Type 2 diabetes mellitus with hyperglycemia; E66.9 Obesity, unspecified; J44.9 Chronic obstructive pulmonary disease, unspecified; N18.9 Chronic kidney disease, unspecified; I13.0 Hypertensive heart and chronic kidney disease with heart failure and stage 1 through stage 4 chronic kidney disease, or unspecified chronic kidney disease; D68.69 Other thrombophilia; I42.8 Other cardiomyopathies; I21.A1 Myocardial infarction type 2; I87.2 Venous insufficiency (chronic) (peripheral); E87.20 Acidosis, unspecified; E87.1 Hypo-osmolality and hyponatremia; E78.5 Hyperlipidemia, unspecified; I87.8 Other specified disorders of veins; E87.21 Acute metabolic acidosis; L85.3 Xerosis cutis; E11.22 Type 2 diabetes mellitus with diabetic chronic kidney disease; J98.11 Atelectasis; E86.1 Hypovolemia; Z91.041 Radiographic dye allergy status; Z79.899 Other long term (current) drug therapy; Z79.82 Long term (current) use of aspirin; Z68.41 Body mass index [BMI] 40.0-44.9, adult
CPT/HCPCS: 36415; 36600; 37184; 37185; 71045; 71260; 71275; 75743; 75820; 75825; 76881; 80048; 80061; 80076; 80305; 81003; 82010; 82375; 82550; 82805; 82962; 83036; 83605; 83735; 83880; 83930; 84100; 84145; 84439; 84443; 84484; 85025; 85027; 85347; 85379; 86705; 86850; 86900; 87340; 93005; 93306; 93458; 93970; 93971; 94070; 94640; 94660; 94664; 94760; 96361; 96374; 96375; 97162; 99291; A4606; A4615; C1769; C1887; C1893; J0282; J0360; J0461; J1171; J1200; J1308; J1644; J1650; J1815; J1938; J2003; J2250; J2270; J2470; J2919; J3010; J3101; J3475; J3490; J7040; J7060; J7512; Q9967; C1757; C1894